=== PATIENT | female | born 1970 ===

== ENCOUNTER 2024-11-25 05:04 | Day surgery (SDC) | payer OTHER ==
[2024-11-25] MEDS ORDERED: DIPHENHYDRAMINE HCL 50 MG/ML VIAL 1ML IV ONE (12:30)
[2024-11-25] MEDS ORDERED: fentaNYL CITRATE 50 MCG/ML AMPUL IV PUSH ONE (12:30)
[2024-11-25] MEDS ORDERED: MIDAZOLAM HCL 2 MG/2 ML VIAL IV ONE (12:30)
== END 2024-11-25 13:25 | disposition home or self-care (01) ==
LOC: AMB-ENDOS 05:04
PROVIDERS: ATTEND Internal Medicine
DX: K63.5 Polyp of colon (principal); D12.3 Benign neoplasm of transverse colon; Z86.0101 Personal history of adenomatous and serrated colon polyps